=== PATIENT | female | born 1955 | race Caucasian/White ===

== ENCOUNTER 2016-08-27 12:32 | Emergency (ER) | payer OTHER, MEDICAID ==
[~2016-08-27] VITALS: Ht 162.6 cm; Wt 83.0 kg
[~2016-08-27 12:32] MED LIST: ASPI81CH CHEW; GLIP5TAB8 PO; LISI10TA3 PO; METF1000 PO; OMEP20TA PO; PRAV40TA2 PO; TRAZ100T4 PO
[2016-08-27 12:34] VITALS: BP 131/63; PULSE 89; RESP 12; TEMP 98.6; O2SAT 96
--- NOTE | 2016-08-27 14:01 | PD ---
HPI . acute on chronic left arm pain Chief Complaint: Pain: Acute or Chronic Time Seen by Provider: 14:00 Travel History International Travel<30 days: No Contact w/Intl Traveler<30days: No Traveled to known affect area: No History of Present Illness HPI 61-year-old female with past medical history of hypertension, diabetes and hyperlipidemia here with complaints of left arm pain. Patient initially hurt her left shoulder back in May and has since been having a burning sensation in her left upper arm. She tells me she has gone to her primary care on several occasions and was told that they would do some blood work and call her back to see if they will refer her anywhere. Unfortunately they have not contacted the patient and she doesn't have an upcoming appointment in the near future. She tells me that she is having a burning sensation in her left upper extremity and also reports having some pain in her left trapezius area. This has been chronic for the last 4 months. She reports during her initial injury she was given pain medication and muscle relaxers, which somewhat helped. She says her primary care prescribed her tramadol and it is not helping her pain. At the time of examination she denies any numbness or tingling. She denies any chest pain, shortness of breath, nausea, vomiting, diarrhea, or constipation. She denies any recent injury or trauma. She is accompanied by her . PFSH Past Medical History Atrial Fibrillation: Yes Cardiac Catheterization: Yes Cardiovascular Problems: Yes Cerebrovascular Accident: Yes (2008) Coronary Artery Disease: Yes Diabetes: Yes Menopausal: Yes : 3 Para: 4 Past Surgical History Abdominal Surgery: Yes (alek fundoplicatoin) Cholecystectomy: Yes Hysterectomy: Yes Thoracic Surgery: Yes Other Surgery: Yes (decompression lower spine ) Social History Alcohol Use: No Tobacco Use: No Substance Use: No Allergies-Medications (Allergen,Severity, Reaction): Coded Allergies: Cipro (Verified Allergy, Severe, 07/01/16) Decadron (Verified Allergy, Severe, 07/01/16) Dilaudid (Verified Allergy, Severe, 07/01/16) Penicillin (Verified Allergy, Severe, 07/01/16) Sulfa (Verified Allergy, Severe, 07/01/16) Percodan (Verified Allergy, Unknown, 08/27/16) Reported Meds & Prescriptions Reported Meds & Active Scripts Active Reported Omeprazole 20 Mg Tab 20 Mg PO EVERY OTHER DAY Trazodone (Trazodone HCl) 100 Mg Tab 100 Mg PO HS Pravastatin 40 Mg Tab 40 Mg PO HS Lisinopril 10 Mg Tab 10 Mg PO DAILY Aspirin 81 Mg Chew 81 Mg CHEW DAILY Glipizide 5 Mg Tab 5 Mg PO HS Take 30 minutes before a meal Metformin (Metformin HCl) 1,000 Mg Tab 1,000 Mg PO BIDPC With meals Review of Systems General / Constitutional: No: Fever Eyes: No: Visual changes HENT: No: Headaches Cardiovascular: No: Chest Pain or Discomfort Respiratory: No: Shortness of Breath Gastrointestinal: No: Abdominal Pain Genitourinary: No: Dysuria Musculoskeletal: Positive: Pain (left arm pain) Skin: No Rash Neurologic: No: Weakness Psychiatric: No: Depression Endocrine: No: Polydipsia Hematologic/Lymphatic: No: Easy Bruising Physical Exam Narrative GENERAL: AAO x 3, no acute distress, Well-nourished, well-developed patient. SKIN: Warm and dry. No visible rashes or bruising. HEAD: Normocephalic and atraumatic. EYES: No scleral icterus. No injection or drainage. ENT: No nasal drainage noted. Mucous membranes pink. Airway patent. NECK: Supple, trachea midline. No JVD. CARDIOVASCULAR: Regular rate and rhythm without murmurs, gallops, or rubs. RESPIRATORY: Breath sounds equal bilaterally. No accessory muscle use. No rhonchi or rales. GASTROINTESTINAL: Abdomen soft, non-tender, nondistended. EXTREMITIES: No cyanosis or edema. Left arm without any deformities. [employer] strength equal bilaterally. ROM is normal. Patient experiences burning pain with slight palpation to left humerus. NO signs of fracture. BACK: Nontender without obvious deformity. No CVA tenderness. PSYCH: AAO x 3, normal affect. Data Data Last Documented VS Vital Signs Date Time Temp Pulse Resp B/P Pulse Ox O2 Delivery O2 Flow Rate FiO2 08/27/16 12:34 98.6 89 12 131/63 96 Room Air MDM Medical Decision Making Medical Screen Exam Complete: Yes Emergency Medical Condition: Yes Medical Record Reviewed: Yes Differential Diagnosis neuropathy, muscle spasm, cervical radiculopathy, OA Narrative Course 61-year-old female with past medical history of hypertension, diabetes and hyperlipidemia here with complaints of left arm pain. Patient initially hurt her left shoulder back in May and has since been having a burning sensation in her left upper arm. She tells me she has gone to her primary care on several occasions and was told that they would do some blood work and call her back to see if they will refer her anywhere. Unfortunately they have not contacted the patient and she doesn't have an upcoming appointment in the near future. She tells me that she is having a burning sensation in her left upper extremity and also reports having some pain in her left trapezius area. This has been chronic for the last 4 months. She reports during her initial injury she was given pain medication and muscle relaxers, which somewhat helped. She says her primary care prescribed her tramadol and it is not helping her pain. At the time of examination she denies any numbness or tingling. She denies any chest pain, shortness of breath, nausea, vomiting, diarrhea, or constipation. She denies any recent injury or trauma. She is accompanied by her . Patient seen and examined. Explained that imaging is not indicated. Recommend short course of muscle relaxers as she may be experiencing some muscle spasms in the trapezius area. Discussed that she will need to see her PCP to get referral to neurology or pain management to treat what appears to be either neuropathy or cervical radiculopathy. Explained this is not a medical emergency and she will need to start meds and have them titrated as an outpatient. Patient was very understanding. I have provided her with the names of some pain specialist in the area and neurologist. Patient verbalized understanding of instructions, questions were answered, and thanked me for their care. I advised them if their condition worsens, please return to the nearest emergency room for further care. Diagnosis Primary Impression: Left arm pain Additional Impressions: Muscle spasm Neuropathy Referrals: [facility] Patient Instructions: Arm Pain (ED), General Instructions, Muscle Spasm (ED) Additional Instructions: As we discussed, please follow up with your primary care provider to get referrals to pain specialist and neurology. I have provided you with the name of one center. I have given you a short course of flexeril (muscle relaxer). Return to ED if your symptoms worsen. Scripts Cyclobenzaprine (Flexeril)5 Mg Tab5 Mg PO HS #10 TAB Ref 0 Prov:Ayala Valentine 08/27/16 Disposition: 01 DISCHARGE HOME Condition: Stable Ayala Valentine Aug 27, 2016 14:01
[2016-08-27] MEDS ORDERED: CYCL5TAB PO (14:22)
== END 2016-08-27 15:01 | disposition home or self-care (01) ==
LOC: NEPB 12:32
DX: M79.602 Pain in left arm (principal); M62.838 Other muscle spasm; G62.9 Polyneuropathy, unspecified; E11.9 Type 2 diabetes mellitus without complications; E78.5 Hyperlipidemia, unspecified; I10 Essential (primary) hypertension; I48.91 Unspecified atrial fibrillation; I25.10 Atherosclerotic heart disease of native coronary artery without angina pectoris; Z86.73 Personal history of transient ischemic attack (TIA), and cerebral infarction without residual deficits
CPT/HCPCS: 99282